=== PATIENT | male | born 1995 | race Two or more races ===

== ENCOUNTER 2017-08-31 18:34 | Emergency (ER) | payer OTHER ==
[~2017-08-31] VITALS: Ht 175.3 cm; Wt 57.0 kg
[2017-08-31] MEDS ORDERED: KETOROLAC 30 MG/1 ML ONE (19:23)
[2017-08-31] MEDS ORDERED: DIAZEPAM 5 MG TABLET ONE (19:23)
[2017-08-31 19:24] LABS: BASOPHILS # (AUTO) 0.02 x10^3/uL (0-0.1); BASOPHILS % (AUTO) 0 % (0-1); EOSINOPHILS # (AUTO) 0.01 x10^3/uL (0-0.4); EOSINOPHILS % (AUTO) 0 % (1-7); LYMPHOCYTES # (AUTO) 2.76 x10^3/uL (1-3.4); LYMPHOCYTES % (AUTO) 30 % (22-44); MD NO; MEAN CORPUSCULAR HEMOGLOBIN 29.4 pg (27.5-34.5); MEAN CORPUSCULAR HGB CONC 33.4 g/dL (33.2-36.2); MEAN CORPUSCULAR VOLUME 88.1 fL (81-97); MEAN PLATELET VOLUME 7.3 fL (7.4-10.4); MONOCYTES # (AUTO) 0.58 x10^3/uL (0.2-0.8); MONOCYTES % (AUTO) 6 % (2-9); NEUTROPHILS # (AUTO) 5.83 x10^3/uL (1.8-6.8); NEUTROPHILS % (AUTO) 63 % (42-75); PLATELET COUNT 489 x10^3/uL (130-400); RED BLOOD COUNT 5.33 x10^6/uL (4.38-5.82); RED CELL DISTRIBUTION WIDTH 13.4 % (9.4-14.8)
[2017-08-31] MEDS ORDERED: DIAZEPAM 5 MG TABLET PO ONE (19:30)
[2017-08-31] MEDS ORDERED: KETOROLAC 30 MG/1 ML IM ONE (19:30)
[2017-08-31 19:34] LABS: ALBUMIN 4.4 g/dL (3.4-5.0); ANION GAP 9 mmol/L (5-15); CALCIUM 9.2 mg/dL (8.5-10.1); CHLORIDE 107 mmol/L (98-107); CREATININE 0.93 mg/dL (0.7-1.3)
[2017-08-31 19:55] LABS: MICROSCOPIC INDICATED
[2017-08-31 20:06] LABS: CULTURE INDICATED? NO
[2017-08-31 20:12] VITALS: BP 126/69
[2017-08-31] MEDS ORDERED: AZITHROMYCIN 500 MG TABLET PO ONE (20:30)
[2017-08-31] MEDS ORDERED: CEFTRIAXONE 250 MG IM ONE (20:30)
[2017-08-31] MEDS ORDERED: CEFTRIAXONE 250 MG ONE (20:32)
[2017-08-31] MEDS ORDERED: AZITHROMYCIN 500 MG TABLET ONE (20:32)
[2017-08-31] MEDS ORDERED: LIDOCAINE-MPF 1%, 2ML ONE (20:33)
== END 2017-08-31 20:54 | disposition home or self-care (01) ==
LOC: ED 19:43
DX: R42 Dizziness and giddiness (principal); R20.2 Paresthesia of skin; L04.2 Acute lymphadenitis of upper limb; N34.1 Nonspecific urethritis
CPT/HCPCS: 36415; 80048; 81001; 82040; 85025; 87491; 87591; 93005; 96372; 99285; J0696; J1885